=== PATIENT | female | born 1955 | race Caucasian/White ===

== ENCOUNTER → 2018-12-10 09:02 | Outpatient (CLI) | payer OTHER, SELFPAY ==
--- NOTE | 2018-12-10 09:05 | DI.MG.S_ITS ---
BILATERAL DIGITAL SCREENING MAMMOGRAM 3D/2D WITH CAD: 12/10/2018 CLINICAL: Routine screening. Comparison is made to exams dated: 06/18/2016 mammogram, 02/14/2014 mammogram, and 01/06/2012 mammogram - [facility]. The tissue of both breasts is heterogeneously dense. This may lower the sensitivity of mammography. Current study was also evaluated with a Computer Aided Detection (CAD) system. There are benign post operative findings in the left breast. There also are benign calcifications in both breasts. Additionally, there is a benign biopsy clip in the right breast. No significant masses, calcifications, or other findings are seen in either breast. There has been no significant interval change. IMPRESSION: There is no mammographic evidence of malignancy. A 1 year screening mammogram is recommended. This exam was interpreted at Station ID: [id number]. NOTE: For mammograms, a report in lay terms will be sent to the patient. Approximately 15% of breast malignancies will not be visualized mammographically. In the management of a palpable breast mass, a negative mammogram must not discourage biopsy of a clinically suspicious lesion. Electronically Signed By: Aravind youssef/prabhu:12/11/2018 15:05:12 letter sent: Normal Exam ACR BI-RADS Category 2: Benign Finding(s) 3342F
== END ==
PROVIDERS: PCP Family Medicine; Visit Provider Family Medicine
DX: Z12.31 Encounter for screening mammogram for malignant neoplasm of breast (principal)
CPT/HCPCS: 77063; 77067

== ENCOUNTER → 2019-04-25 09:27 | Outpatient (CLI) | payer OTHER, SELFPAY ==
[2019-04-25 10:48] LABS: Add Manual Diff / Slide Review NO; Basophils Absolute Auto 100 /uL (0-100); Basophils Percent Auto 1.1 % (0-2); Eosinophils Absolute Auto 300 /uL (0-450); Eosinophils Percent Auto 4.5 % (2-4); Hematocrit 39.7 % (36-46); Hemoglobin 13.2 g/dL (12.0-16.0); Lymphocytes Absolute Auto 1400 /uL (1100-4500); Lymphocytes Percent Auto 25.3 % (25-40); Mean Corpuscular HGB Conc 33.3 % (30-36); Mean Corpuscular Hemoglobin 29.4 PG (26-34); Mean Corpuscular Volume 88.5 fL (80-100); Monocytes Absolute Auto 500 /uL (0-900); Monocytes Percent Auto 9.5 % (3-14); Neutrophils Absolute Auto 3300 /uL (1500-7000); Neutrophils Percent Auto 59.6 % (50-75); Platelet Count 249 X10^3/uL (150-400); Red Blood Cell Count 4.48 X10^6/uL (4.0-5.2); Red Cell Distribution Width 13.8 % (11.6-14.8); White Blood Cell Count 5.6 X10^3/uL (4.5-11.0)
[2019-04-25 10:59] LABS: Hemoglobin A1C% w Est Avg Glu 5.1 % (4.0-6.0)
[2019-04-25 11:11] LABS: Alanine Aminotransferase 13 IU/L (9-52); Albumin 3.9 g/dL (3.5-5.0); Albumin Globulin Ratio 1.3 (1.0-2.8); Alkaline Phosphatase 63 U/L (38-126); Aspartate Aminotransferase 24 IU/L (14-36); Bilirubin Total 0.9 mg/dL (0.2-1.3); Blood Urea Nitrogen 14 mg/dL (7-17); Calcium 9.4 mg/dL (8.4-10.2); Carbon Dioxide 31 mmol/L (22-32); Chloride 102 mmol/L (98-107); Cholesterol 197 mg/dL (140-199); Estimated Glomerular Filt Rate > 60.0 mL/min (>60); Globulin 2.9 g/dL (1.7-4.1); Glucose 96 mg/dL (80-110); HDL Cholesterol 84 mg/dL (40-60); HEMOLYSIS < 15 (0-50); LDL Cholesterol Calculated 104 mg/dL (<100); Potassium 4.6 mmol/L (3.4-5.1); Sodium 138 mmol/L (137-145); Total Protein 6.8 g/dL (6.3-8.2); Triglycerides 45 mg/dL (35-150)
[2019-04-25 11:40] LABS: Thyroid Stimulating Hormone 4.89 uIU/mL (0.47-4.68)
[2019-04-25 11:40] LABS: Creatinine Urine Random 105.1 mg/dL
[2019-04-25 11:44] LABS: Microalbumi Creatinin Ratio Ur 6.6 ug/mg CR (<30); Microalbumin Urine Random 0.7 mg/dL (0-1.6)
[2019-04-25 17:20] LABS: Free T3, Triiodothyronine Free 4.68 pg/mL (2.77-5.27); Free T4, Direct Thyroxine 1.17 ng/dL (0.78-2.19)
== END ==
PROVIDERS: PCP Family Medicine; Visit Provider Family Medicine
DX: R73.9 Hyperglycemia, unspecified (principal); R03.0 Elevated blood-pressure reading, without diagnosis of hypertension; Z13.220 Encounter for screening for lipoid disorders; E03.9 Hypothyroidism, unspecified
CPT/HCPCS: 36415; 80053; 80061; 82043; 82570; 83036; 84439; 84443; 84481; 85025

== ENCOUNTER → 2019-04-26 16:13 | Outpatient (CLI) | payer OTHER, SELFPAY ==
--- NOTE | 2019-04-26 16:15 | DI.RAD.S_ITS ---
PROCEDURE: XR TIBIA FUBULA RT 2V INDICATIONS: direst trauma to lateral tibia TECHNIQUE: 2 views of the tibia and fibula were acquired. COMPARISON: None. FINDINGS: Bones: No fractures or dislocations. No suspicious bony lesions. Soft tissues: No suspicious soft tissue calcifications or masses. IMPRESSION: No acute osseous abnormalities. Dictated by: Yosef Tubbs M.D. on 04/26/2019 at 16:37 Approved by: Yosef Tubbs M.D. on 04/26/2019 at 16:38
== END ==
PROVIDERS: PCP Family Medicine; Visit Provider Nurse Practitioner
DX: M79.604 Pain in right leg (principal); S89.91XA Unspecified injury of right lower leg, initial encounter; X58.XXXA Exposure to other specified factors, initial encounter
CPT/HCPCS: 73590

== ENCOUNTER → 2020-10-17 10:18 | Outpatient (CLI) | payer OTHER, SELFPAY ==
[2020-10-17 11:23] LABS: Add Manual Diff / Slide Review NO; Basophils Absolute Auto 0 /uL (0-100); Basophils Percent Auto 0.4 % (0-2); Eosinophils Absolute Auto 300 /uL (0-450); Eosinophils Percent Auto 2.7 % (2-4); Hematocrit 41.1 % (36-46); Hemoglobin 13.5 g/dL (12.0-16.0); Lymphocytes Absolute Auto 1200 /uL (1100-4500); Lymphocytes Percent Auto 11.9 % (25-40); Mean Corpuscular HGB Conc 32.8 % (30-36); Mean Corpuscular Hemoglobin 28.9 PG (26-34); Mean Corpuscular Volume 88.3 fL (80-100); Monocytes Absolute Auto 800 /uL (0-900); Monocytes Percent Auto 7.8 % (3-14); Neutrophils Absolute Auto 7600 /uL (1500-7000); Neutrophils Percent Auto 77.2 % (50-75); Platelet Count 244 X10^3/uL (150-400); Red Blood Cell Count 4.65 X10^6/uL (4.0-5.2); Red Cell Distribution Width 14.1 % (11.6-14.8); White Blood Cell Count 9.9 X10^3/uL (4.5-11.0)
[2020-10-17 11:30] LABS: Hemoglobin A1C% w Est Avg Glu 5.4 % (4.0-6.0)
[2020-10-17 11:35] LABS: Alanine Aminotransferase 14 IU/L (<35); Albumin Globulin Ratio 1.7 (1.0-2.8); Alkaline Phosphatase 67 U/L (38-126); Aspartate Aminotransferase 22 IU/L (14-36); Bilirubin Total 0.9 mg/dL (0.2-1.3); Blood Urea Nitrogen 14 mg/dL (7-17); Calcium 9.2 mg/dL (8.4-10.2); Carbon Dioxide 29 mmol/L (22-32); Chloride 105 mmol/L (98-107); Cholesterol 213 mg/dL (140-199); Estimated Glomerular Filt Rate > 60.0 mL/min (>60); Globulin 2.4 g/dL (1.7-4.1); Glucose 93 mg/dL (80-110); HDL Cholesterol 76 mg/dL (40-60); HEMOLYSIS < 15 (0-50); LDL Cholesterol Calculated 123 mg/dL (<100); Potassium 4.2 mmol/L (3.4-5.1); Sodium 139 mmol/L (137-145); Total Protein 6.4 g/dL (6.3-8.2); Triglycerides 70 mg/dL (35-150)
[2020-10-17 11:59] LABS: Free T3, Triiodothyronine Free 4.22 pg/mL (2.77-5.27); Free T4, Direct Thyroxine 0.99 ng/dL (0.78-2.19)
[2020-10-17 12:12] LABS: Thyroid Stimulating Hormone 3.13 uIU/mL (0.47-4.68)
== END ==
PROVIDERS: PCP Family Medicine; Referring Provider Family Medicine; Visit Provider Family Medicine
DX: R79.89 Other specified abnormal findings of blood chemistry (principal); D72.10 Eosinophilia, unspecified; R73.9 Hyperglycemia, unspecified; F10.20 Alcohol dependence, uncomplicated; Z13.220 Encounter for screening for lipoid disorders
CPT/HCPCS: 36415; 80053; 80061; 83036; 84439; 84443; 84481; 85025

== ENCOUNTER → 2021-02-11 14:44 | Outpatient (CLI) | payer OTHER, SELFPAY ==
--- NOTE | 2021-02-11 14:46 | DI.MG.S_ITS ---
BILATERAL DIGITAL SCREENING MAMMOGRAM 3D/2D WITH CAD: 02/11/2021 CLINICAL: Routine screening. Comparison is made to exams dated: 12/10/2018 mammogram - [facility], 06/18/2016 mammogram, and 02/14/2014 mammogram - [facility]. The tissue of both breasts is extremely dense, which lowers the sensitivity of mammography. Current study was also evaluated with a Computer Aided Detection (CAD) system. There are benign calcifications in both breasts. There also is a biopsy clip in the right breast. Additionally, there are benign post operative findings in the left breast. No significant masses, calcifications, or other findings are seen in either breast. There has been no significant interval change. IMPRESSION: BENIGN There is no mammographic evidence of malignancy. A 1 year screening mammogram is recommended. This exam was interpreted at Station ID: [id number]. NOTE: For mammograms, a report in lay terms will be sent to the patient. Approximately 15% of breast malignancies will not be visualized mammographically. In the management of a palpable breast mass, a negative mammogram must not discourage biopsy of a clinically suspicious lesion. Electronically Signed By: Aravind youssef/prabhu:02/11/2021 17:04:53 letter sent: Normal Exam ACR BI-RADS Category 2: Benign Finding(s) 3342F
== END ==
PROVIDERS: PCP Family Medicine; Referring Provider Family Medicine; Visit Provider Family Medicine
DX: Z12.31 Encounter for screening mammogram for malignant neoplasm of breast (principal)
CPT/HCPCS: 77063; 77067

== ENCOUNTER → 2021-09-14 12:55 | Outpatient (CLI) | payer MEDICARE, OTHER, SELFPAY ==
[2021-09-14 17:21] LABS: COVID19 -Nasal RAPID Negative (Negative)
== END ==
PROVIDERS: PCP Family Medicine; Visit Provider Nurse Practitioner Family
DX: Z20.822 Contact with and (suspected) exposure to COVID-19 (principal)
CPT/HCPCS: 87635

== ENCOUNTER 2021-09-15 11:54 | Day surgery (SDC) | payer MEDICARE, OTHER, SELFPAY ==
--- NOTE | 2021-09-15 | PATH_ITS ---
[facility] Accession Number: [id number] . 01 Material submitted: . colon - ASCENDING COLON POLYP . 02 Diagnosis: Ascending Colon Polyp: Portions of tubular adenoma x2. MRV 09/17/2021 1000 Local . 02 Electronically signed: . Deepthi Hollis MD, Pathologist NPI- [id number] . 01 Gross description: . ASCENDING COLON POLYP: Received in formalin is 2 fragment(s) of myles, soft tissue measuring 0.3 x 0.1 x 0.1 cm to 0.2 x 0.1 x 0.1 cm submitted entirely in 1 cassette(s) /CPE 09/16/2021 0956 Local . 02 Pathologist provided ICD-10: Z12.11, K63.5 . 02 CPT . 987016 Specimen Comment: A courtesy copy of this report has been sent to [phone] Performed at: 01 [facility] Cytology [address] [facility], [place], [place] [id number] MD Prem Apple MD Phone: [phone] Performed at: 02 [facility] [place] [address] [place], [place] [id number] MD Mel Henao MD Phone: [phone]
[2021-09-15 12:17] VITALS: BMI 25.4
[2021-09-15 12:31] VITALS: BP 119/89; PULSE 79; RESP 16; TEMP 36.7; O2SAT 97
[2021-09-15] MEDS: SODIUM CHLORIDE 0.9% 1,000 ML 84 ML IV (12:33)
--- NOTE | 2021-09-15 12:35 | PM.HP.1 ---
History of Present Illness History of Present Illness Date Patient Seen: 09/15/21 Time Patient Seen: 12:35 Chief complaint: [facility] Narrative: Reports a personal history of colon polyps unknown histology. I have not seen the procedure note. Patient History Medical History Actinic keratosis Anxiety (~2005) Arthritis Bronchitis (~1999) Cervical spine disease (~2015) Chicken pox (~1960) Chronic back pain (~2015) Colon polyps (~2016) Depression (~2005) Hearing loss Heart murmur Lipoma Measles (~1962) Osteoarthritis Osteopenia Ovarian cyst (~2009) Seasonal allergies Vision disorder Surgical History Anesthesia History of dilation and curettage (~1981) History of tonsillectomy Family & Social History Family History Father Alzheimer's disease Mother Hypertension Hyperlipidemia Mental health problem Macular degeneration Brother COPD (chronic obstructive pulmonary disease) Diabetes mellitus History of heart disease Hypertension Hyperlipidemia Mental health problem Brother Cancer Grandfather Cancer Grandmother Stroke Social History: household members none Tobacco & Substance use: Tobacco type cannabis/marijuana Smoking Status Never smoker alcohol intake current alcohol intake frequency 0-2 drinks per day Substance Use Type marijuana Meds Home Medications and Allergies Home Medications Medication Instructions Recorded Confirmed Type No Known Home Medications 09/15/21 09/15/21 History Allergies Allergy/AdvReac Type Severity Reaction Status Date / Time shellfish derived AdvReac Severe lip Verified 09/15/21 12:15 swelling Review of Systems Review of Systems ROS: Yes All systems reviewed with the patient and are negative except as otherwise documented Exam Vital Signs (past 8 hours): - 09/15/21 12:31 Temperature 98.0 F Pulse Rate 79 Respiratory Rate 16 Blood Pressure 119/89 Pulse Oximetry 97 Oxygen Delivery Method Room Air Const General: cooperative and comfortable Orientation: alert HENMT Head: normocephalic Ears: external ears normal Nose: external nose normal Face and sinus: normal facial exam Mouth: oral mucosae normal Eyes General: appearance normal, both eyes and all related structures Neck Neck: normal visual inspection Chest Chest: normal inspection of the chest Resp Effort & Inspection: normal respiratory effort Cardio Rate: regular rate GI Inspection: normal to inspection Skin General: no rashes or lesions noted and No jaundice Neuro General: patient alert and moves all extremities Cognition: normal cognition Speech: speech normal Extrem General: no pedal edema Psych Appearance: grossly normal Assessment & Plan Assessment & Plan narrative: 66-year-old female who reports an unknown histology colon polyp removed some 7 years ago. Colonoscopy is therefore pursued today. Time Spent With Patient Critical Care time: I spent a total of [] minutes of critical care time on this patient's care today; this time is exclusive of procedural time.
--- NOTE | 2021-09-15 12:37 | PM.PREOP ---
Pre-operative Note COVID-19 COVID-19 status: Negative Result date/Date tested (Pos, Neg/Pending): 09/14/21 Criteria for continued procedure: Possibility delay results in more complex future surgery or treatment Interval Note History & Physical reviewed/Exam performed by Physician: Yes Changes to H&P: No ASA Class (for procedural sedation): II
--- NOTE | 2021-09-15 14:13 | PM.OP.COLON ---
Operative Date/Time/Diagnoses Date of procedure: 09/15/21 Time of procedure: 14:13 Pre-op diagnosis: Unknown histology colon polyps Post-op diagnosis: same Procedure & Clinicians Study performed: Colonoscopy with cold forceps polypectomy Same procedure as scheduled: Yes Indications: Personal history of unknown histology colon polyps Surgeon: Angel Martínez Procedure Notes SCOAP/Timeout: Done Procedure in detail: After the risks and benefits were explained, written and verbal informed consent was obtained. The patient was brought into the procedure room and placed into the left lateral decubitus position. Please see nurse sales support manager notes for sedation details. Digital rectal examination was accomplished. The scope was introduced into the patient and advanced under direct visualization to the cecum as identified by the appendiceal orifice and ileocecal valve. The scope was slowly withdrawn to carefully examine the mucosa for any defects or lesions. Comprehensive imaging was accomplished throughout the rectum including the dentate line. The colon was decompressed, the scope was then removed from the patient who tolerated the procedure well. Pediatric colonoscope Bowel prep adequate Scope withdrawal time: 11 minutes Sedation minutes: 31 Complications: none Impression: Patient had an exceptionally difficult navigation. Very tortuous colon. The stiffening sandra was required along with various applications of abdominal pressure and placement of the patient in the supine position. There was a diminutive polyp seen and removed with cold forceps from the ascending colon. No additional mucosal pathology was appreciated throughout. Endoscopic diagnosis 1. Challenging navigation 2. Colon polyp Post-procedure Plan for aftercare: 1. Await histopathology 2. Repeat colonoscopy 7 years. Disposition: PACU
[2021-09-15 14:15] VITALS: BP 109/64; PULSE 64; RESP 15; TEMP 36.4; O2SAT 98
[2021-09-15 14:20] VITALS: BP 123/69; PULSE 75; RESP 14; O2SAT 99
[2021-09-15 14:25] VITALS: BP 130/72; PULSE 72; RESP 14; O2SAT 99
[2021-09-15 14:32] VITALS: BP 125/68; PULSE 66; RESP 16; TEMP 37.1; O2SAT 14
--- NOTE | 2021-09-15 14:48 | SUR.PHASEII ---
Addendum entered by April Phillips R.N. 09/15/21 14:52: ride recalled for third time. asked to park car at hospital entrance and let us know she is here. patient updated. Original Note: holding while awaiting ride.
== END 2021-09-15 15:00 | disposition home or self-care (01) ==
PROVIDERS: PCP Family Medicine; Referring Provider Internal Medicine Gastroenterology; Visit Provider Internal Medicine Gastroenterology
PROC: 0DJD8ZZ Inspection of Lower Intestinal Tract, Via Natural or Artificial Opening Endoscopic (ICD-10-PCS; CPT 45378; principal; 2021-09-15 13:00)
DX: Z12.11 Encounter for screening for malignant neoplasm of colon (principal); Z86.010 Personal history of colon polyps; D12.2 Benign neoplasm of ascending colon
CPT/HCPCS: 45380; J2704

== ENCOUNTER → 2022-05-28 11:05 | Outpatient (CLI) | payer MEDICARE, OTHER, SELFPAY ==
--- NOTE | 2022-05-28 11:09 | DI.MG.S_ITS ---
BILATERAL DIGITAL SCREENING MAMMOGRAM 3D/2D WITH CAD: 05/28/2022 CLINICAL: Routine screening. Comparison is made to exams dated: 02/11/2021 mammogram, 12/10/2018 mammogram - [facility], and 06/18/2016 mammogram - [facility]. There are scattered areas of fibroglandular density in both breasts (category b / 25%-50% glandular tissue). Current study was also evaluated with a Computer Aided Detection (CAD) system. There are benign calcifications in both breasts. There also is a biopsy clip in the right breast. Additionally, there are benign post operative findings in the left breast. No significant masses, calcifications, or other findings are seen in either breast. There has been no significant interval change. IMPRESSION: BENIGN There is no mammographic evidence of malignancy. A 1 year screening mammogram is recommended. Based on the Tyrer Cuzick model (a risk assessment model) the patient's lifetime risk is 6.0% and her 10 year risk is 3.0%. According to the ACR, ACS, and NCCN guidelines, an annual breast MRI exam along with mammogram is recommended if the patient's lifetime risk is 20% or greater. This exam was interpreted at Station ID: [id number]. NOTE: For mammograms, a report in lay terms will be sent to the patient. Approximately 15% of breast malignancies will not be visualized mammographically. In the management of a palpable breast mass, a negative mammogram must not discourage biopsy of a clinically suspicious lesion. Electronically Signed By: Sujey damico/prabhu:05/28/2022 17:58:23 letter sent: Normal Exam ACR BI-RADS Category 2: Benign Finding(s) 3342F
--- NOTE | 2022-05-28 11:11 | DI.RAD.S_ITS ---
PROCEDURE: XR CHEST 2V INDICATIONS: bilateral hip pain R > L TECHNIQUE: 2 views of the chest were acquired. COMPARISON: None. FINDINGS: Surgical changes and devices: None. Lungs and pleura: Lungs are clear. No pleural effusions or pneumothorax. Mediastinum: Mediastinal contours are normal. Heart size is normal. Bones and chest wall: No suspicious bony abnormalities. Soft tissues appear unremarkable. IMPRESSION: No acute cardiopulmonary abnormality. Dictated by: Loi Mendoza M.D. on 05/28/2022 at 16:28 Approved by: Loi Mendoza M.D. on 05/28/2022 at 16:33
--- NOTE | 2022-05-28 11:11 | DI.RAD.S_ITS ---
PROCEDURE: XR HIP W PEL IF DONE JOSE MIN 4V INDICATIONS: bilateral hip pain R > L TECHNIQUE: AP pelvis with lateral view(s) of the bilateral hip(s). COMPARISON: None. FINDINGS: Bones: No fractures or dislocations. Pelvic ring appears intact. No suspicious bony lesions. Moderate bilateral hip joint space narrowing. Lower lumbar spine joint space narrowing Soft tissues: The visualized bowel gas pattern is normal. No suspicious soft tissue calcifications. IMPRESSION: Moderate bilateral hip joint space narrowing Approved by: James Greer M.D. on 05/28/2022 at 17:53
[2022-05-28 13:33] LABS: Add Manual Diff / Slide Review NO; Basophils Absolute Auto 100 /uL (0-100); Eosinophils Absolute Auto 400 /uL (0-450); Eosinophils Percent Auto 7.1 % (2-4); Hemoglobin 13.5 g/dL (12.0-16.0); Lymphocytes Absolute Auto 1500 /uL (1100-4500); Lymphocytes Percent Auto 27.2 % (25-40); Mean Corpuscular HGB Conc 33.8 % (30-36); Mean Corpuscular Hemoglobin 29.4 PG (26-34); Mean Corpuscular Volume 87.1 fL (80-100); Monocytes Absolute Auto 500 /uL (0-900); Monocytes Percent Auto 9.2 % (3-14); Neutrophils Absolute Auto 3200 /uL (1500-7000); Neutrophils Percent Auto 55.5 % (50-75); Platelet Count 241 X10^3/uL (150-400); Red Blood Cell Count 4.59 X10^6/uL (4.0-5.2); Red Cell Distribution Width 13.3 % (11.6-14.8); White Blood Cell Count 5.7 X10^3/uL (4.5-11.0)
[2022-05-28 14:20] LABS: Alanine Aminotransferase 18 IU/L (<35); Albumin Globulin Ratio 1.5 (1.0-2.8); Alkaline Phosphatase 81 U/L (38-126); Aspartate Aminotransferase 23 IU/L (14-36); BUN Creatinine Ratio 18.4 (6-22); Blood Urea Nitrogen 14 mg/dL (7-17); Calcium 9.3 mg/dL (8.4-10.2); Carbon Dioxide 24 mmol/L (22-32); Chloride 104 mmol/L (98-107); Cholesterol 211 mg/dL (140-199); Estimated Glomerular Filt Rate > 60 mL/min (>60); Globulin 2.6 g/dL (1.7-4.1); Glucose 93 mg/dL (80-110); HDL Cholesterol 81 mg/dL (40-60); HEMOLYSIS < 15 (0-50); LDL Cholesterol Calculated 115 mg/dL (<100); Potassium 4.4 mmol/L (3.4-5.1); Sodium 137 mmol/L (137-145); Total Protein 6.6 g/dL (6.3-8.2); Triglycerides 74 mg/dL (35-150)
[2022-05-28 14:43] LABS: TSH w/ Reflex to FT4 2.28 uIU/mL (0.47-4.68)
== END ==
PROVIDERS: PCP Family Medicine; Referring Provider Physician Assistant; Visit Provider Physician Assistant
DX: Z12.31 Encounter for screening mammogram for malignant neoplasm of breast (principal); M25.551 Pain in right hip; M25.552 Pain in left hip; R05.9 Cough, unspecified; E78.5 Hyperlipidemia, unspecified; R06.02 Shortness of breath; R53.83 Other fatigue
CPT/HCPCS: 36415; 71046; 73522; 77063; 77067; 80053; 80061; 84443; 85025

== ENCOUNTER → 2022-06-09 12:31 | Outpatient (CLI) | payer MEDICARE, OTHER, SELFPAY ==
[2022-06-09 13:17] LABS: COVID19 -Nasal RAPID Negative (Negative)
[2022-06-09 15:07] LABS: C-Reactive Protein Quant < 0.5 mg/dL (<1.0)
[2022-06-09 16:08] LABS: Hemoglobin A1C% w Est Avg Glu 5.4 % (4.0-6.0)
== END ==
PROVIDERS: Physician Assistant; PCP Family Medicine; Referring Provider Internal Medicine; Visit Provider Internal Medicine
DX: R73.9 Hyperglycemia, unspecified (principal); E78.5 Hyperlipidemia, unspecified; F12.90 Cannabis use, unspecified, uncomplicated; Z20.822 Contact with and (suspected) exposure to COVID-19; R00.2 Palpitations; M25.551 Pain in right hip; R09.82 Postnasal drip; R05.3 Chronic cough; R41.3 Other amnesia; Z68.27 Body mass index [BMI] 27.0-27.9, adult
CPT/HCPCS: 36415; 83036; 86140; 87635; 93005; C9803

== ENCOUNTER → 2022-06-10 08:21 | Outpatient (CLI) | payer MEDICARE, OTHER, SELFPAY ==
--- NOTE | 2022-06-16 07:51 | PM.PFT.1 ---
Pulmonary Function Test Referral & Results Date Patient Seen: 06/10/22 Requesting provider: Kim Cleaning Results: The spirometry demonstrates an FVC of 2.98 L which is 99% of predicted. The FEV1 was measured at 2.36 L which is 103% of predicted. The FEV1/FVC ratio was 79 which is 102% of predicted. Following the administration of bronchodilator there was a 33% improvement in FEF 25-75%. Lung volumes show an SVC of 3.42 L which is 120% of predicted. The diffusing capacity was measured at 21.92 which is 95% of predicted. The maximum voluntary ventilation was normal Interpretation: This study demonstrates normal pulmonary function
== END ==
PROVIDERS: PCP Family Medicine; Referring Provider Physician Assistant; Visit Provider Physician Assistant
DX: R06.02 Shortness of breath (principal); R05.9 Cough, unspecified; F12.90 Cannabis use, unspecified, uncomplicated
CPT/HCPCS: 94060; 94726; 94729

== ENCOUNTER → 2023-10-14 08:52 | Outpatient (CLI) | payer MEDICARE, OTHER, SELFPAY ==
[2023-10-14 09:47] LABS: Add Manual Diff / Slide Review NO; Basophils Absolute Auto 100 /uL (0-100); Basophils Percent Auto 1.3 % (0-2); Eosinophils Absolute Auto 1100 /uL (0-450); Eosinophils Percent Auto 16.9 % (2-4); Hematocrit 40.1 % (36-46); Hemoglobin 13.5 g/dL (12.0-16.0); Lymphocytes Absolute Auto 1800 /uL (1100-4500); Lymphocytes Percent Auto 29.1 % (25-40); Mean Corpuscular HGB Conc 33.7 % (30-36); Mean Corpuscular Hemoglobin 29.7 PG (26-34); Mean Corpuscular Volume 88.3 fL (80-100); Monocytes Absolute Auto 400 /uL (0-900); Monocytes Percent Auto 7.1 % (3-14); Neutrophils Absolute Auto 2800 /uL (1500-7000); Neutrophils Percent Auto 45.6 % (50-75); Platelet Count 252 X10^3/uL (150-400); Red Blood Cell Count 4.54 X10^6/uL (4.0-5.2); Red Cell Distribution Width 13.9 % (11.6-14.8); White Blood Cell Count 6.3 X10^3/uL (4.5-11.0)
[2023-10-14 10:35] LABS: Cholesterol 215 mg/dL (140-199); HDL Cholesterol 67 mg/dL (40-60); LDL Cholesterol Calculated 133 mg/dL (<100); Triglycerides 77 mg/dL (35-150)
[2023-10-14 22:50] LABS: Hep C Virus Ab w/Reflex Quant NEGATIVE s/c (NEGATIVE)
== END ==
PROVIDERS: PCP Family Medicine; Referring Provider Family Medicine; Visit Provider Family Medicine
DX: Z13.9 Encounter for screening, unspecified (principal); R89.8 Other abnormal findings in specimens from other organs, systems and tissues; E78.5 Hyperlipidemia, unspecified
CPT/HCPCS: 36415; 80061; 85025; 86803

== ENCOUNTER → 2024-08-29 15:44 | Outpatient (CLI) | payer MEDICARE, OTHER, SELFPAY ==
--- NOTE | 2024-08-29 15:45 | DI.MG.S_ITS ---
BILATERAL DIGITAL SCREENING MAMMOGRAM 3D/2D WITH CAD: 08/29/2024 CLINICAL: Routine screening. Comparison is made to exams dated: 05/28/2022 mammogram, 02/11/2021 mammogram, 12/10/2018 mammogram - [facility], and 06/18/2016 mammogram - [facility]. There are scattered areas of fibroglandular density (category b / 25%-50% glandular tissue). Current study was also evaluated with a Computer Aided Detection (CAD) system. There is a biopsy clip in the right breast. There also are benign post operative findings in the left breast. No significant masses, calcifications, or other findings are seen in either breast. There has been no significant interval change. IMPRESSION: BENIGN There is no mammographic evidence of malignancy. A 1 year screening mammogram is recommended. Based on the Tyrer Cuzick model (a risk assessment model) the patient's lifetime risk is 5.4% and her 10 year risk is 3.0%. According to the ACR, ACS, and NCCN guidelines, an annual breast MRI exam along with mammogram is recommended if the patient's lifetime risk is 20% or greater. This exam was interpreted at Station ID: [id number]. NOTE: For mammograms, a report in lay terms will be sent to the patient. Approximately 15% of breast malignancies will not be visualized mammographically. In the management of a palpable breast mass, a negative mammogram must not discourage biopsy of a clinically suspicious lesion. Electronically Signed By: Tammy Sales M.D., Ph.D. eb/:08/31/2024 14:02:57 letter sent: Normal Exam ACR BI-RADS Category 2: Benign
== END ==
PROVIDERS: PCP Family Medicine; Referring Provider Family Medicine; Visit Provider Family Medicine
DX: Z12.31 Encounter for screening mammogram for malignant neoplasm of breast (principal)
CPT/HCPCS: 77063; 77067

== ENCOUNTER → 2024-10-04 09:08 | Outpatient (CLI) | payer MEDICARE, OTHER, SELFPAY ==
[2024-10-04 10:26] LABS: Hemoglobin A1C% w Est Avg Glu 5.1 % (4.0-6.0)
[2024-10-04 10:33] LABS: Alanine Aminotransferase 18 IU/L (<35); Albumin Globulin Ratio 1.8 (1.0-2.8); Alkaline Phosphatase 57 U/L (38-126); Aspartate Aminotransferase 24 IU/L (14-36); BUN Creatinine Ratio 18.2 (6-22); Bilirubin Total 1.1 mg/dL (0.2-1.3); Blood Urea Nitrogen 14 mg/dL (7-17); C-Reactive Protein Quant < 0.5 mg/dL (<1.0); Calcium 9.4 mg/dL (8.4-10.2); Carbon Dioxide 28 mmol/L (22-32); Chloride 106 mmol/L (98-107); Cholesterol 206 mg/dL (140-199); Estimated Glomerular Filt Rate > 60 mL/min (>60); Globulin 2.2 g/dL (1.7-4.1); Glucose 94 mg/dL (80-110); HDL Cholesterol 82 mg/dL (40-60); HEMOLYSIS < 15 (0-50); LDL Cholesterol Calculated 109 mg/dL (<100); Potassium 4.4 mmol/L (3.4-5.1); Sodium 138 mmol/L (137-145); Total Protein 6.2 g/dL (6.3-8.2); Triglycerides 73 mg/dL (35-150)
[2024-10-04 10:46] LABS: Erythrocyte Sedimentation Rate 6 MM/HR (0-20)
== END ==
PROVIDERS: PCP Family Medicine; Referring Provider Family Medicine; Visit Provider Family Medicine
DX: E78.5 Hyperlipidemia, unspecified (principal); M54.9 Dorsalgia, unspecified; E66.3 Overweight
CPT/HCPCS: 36415; 80053; 80061; 83036; 83695; 83704; 85651; 86140

== ENCOUNTER → 2024-10-14 08:23 | Outpatient (CLI) | payer MEDICARE, OTHER, SELFPAY | LOC: LAB 08:24 | PROVIDERS: PCP Family Medicine; Referring Provider Family Medicine; Visit Provider Family Medicine | DX: E78.5 Hyperlipidemia, unspecified (principal) | CPT/HCPCS: 80061; 83695; 83704 ==